=== PATIENT | female | born 1995 | race Caucasian/White ===

== ENCOUNTER 2018-11-09 20:11 | Emergency (ER) | payer MEDICAID ==
[~2018-11-09] VITALS: Ht 167.6 cm; Wt 76.0 kg
[2018-11-09] MEDS ORDERED: MORPHINE SULFATE 10 MG/ML CPJ IM ONE (21:30)
[2018-11-09] MEDS ORDERED: KETOROLAC 60MG/2ML VIAL IM ONE (21:30)
[2018-11-10 01:35] VITALS: BP 125/62
== END 2018-11-10 01:35 | disposition home or self-care (01) ==
LOC: ER 20:11
DX: S20.211A Contusion of right front wall of thorax, initial encounter (principal); V49.88XA Car occupant (driver) (passenger) injured in other specified transport accidents, initial encounter; Y93.89 Activity, other specified; Y92.89 Other specified places as the place of occurrence of the external cause; Y99.8 Other external cause status
CPT/HCPCS: 71100; 81025; 96372; 99283; J1885; J2270; Z7610